=== PATIENT | female | born 1970 | race Asian ===

== ENCOUNTER 2017-03-25 10:53 | Day surgery (SDC) | payer OTHER, BC ==
[~2017-03-25] VITALS: Ht 154.9 cm; Wt 55.0 kg
[~2017-03-25 10:53] MED LIST: AMBR10TA3 PO; CARV6.2512 PO; CETI10CA PO; DEXL60CA PO; DIPH25CA61 PO; DOCO200C3 PO; FAMO-79 PO; FURO-93 PO; IPRA12.9 INH; MULT1TAB77 PO; ONDA4TAB7 PO; POTA10TA31 PO; SILD20TA PO; TADA20TA33 PO
[2017-03-25 12:03] VITALS: BP 111/82
[2017-03-25] MEDS ORDERED: LACTATED RINGERS 1,000 ML IV SCH (12:07)
[2017-03-25] MEDS ORDERED: REMODULIN (12:30)
[2017-03-25] MEDS ORDERED: BUPIVACAINE/PF-EPI 0.5% 1:200K ONE (13:01)
[2017-03-25] MEDS ORDERED: HEPARIN 1,000 UNITS/ML, 10ML ONE (13:01)
[2017-03-25 13:20] LABS: HCG UR OBC PASS
[2017-03-25] MEDS ORDERED: MIDAZOLAM 1 MG/ML, 2ML ONE (13:23)
[2017-03-25] MEDS ORDERED: FENTANYL PF 100 MCG/2ML ONE (13:23)
[2017-03-25] MEDS ORDERED: CEFAZOLIN 1,000 MG ONE (13:24)
[2017-03-25] MEDS ORDERED: LIDOCAINE/PF 1.5%-EPI 1:200K, 30ML ONE (13:27)
[2017-03-25] MEDS ORDERED: LIDOCAINE/PF 1%, 30ML ONE (13:27)
[2017-03-25] MEDS ORDERED: EPINEPHRINE 1 MG/ML, 1ML ONE (13:28)
[2017-03-25] MEDS ORDERED: FENTANYL PF 100 MCG/2ML IV PRN (14:00)
[2017-03-25] MEDS ORDERED: ACETAMINOPHEN 325 MG TABLET PO PRN (14:00)
[2017-03-25] MEDS ORDERED: HYDROmorphone 1 MG/ML, 1ML IV PRN (14:00)
[2017-03-25] MEDS ORDERED: OXYcodone 5 MG/5 ML ORAL.SOL UDC PO PRN (14:00)
[2017-03-25] MEDS ORDERED: METOCLOPRAMIDE 5 MG/ML, 2ML IV PRN (14:00)
[2017-03-25] MEDS ORDERED: ONDANSETRON 2MG/ML, 2ML IVPush PRN (14:00)
[2017-03-25] MEDS ORDERED: LABETALOL 5MG/ML, 20ML IV PRN (14:00)
[2017-03-25] MEDS ORDERED: hydrALAzine 20 MG/ML, 1ML IV PRN (14:00)
== END 2017-03-25 16:50 | disposition home or self-care (01) ==
LOC: OUT 10:53
PROVIDERS: ATTEND Surgery
DX: I27.2 Other secondary pulmonary hypertension (principal); I10 Essential (primary) hypertension; Z91.09 Other allergy status, other than to drugs and biological substances
CPT/HCPCS: 36558; 71010; 76000; 81025; 93308; 93321; 93325; C1788; J0690; J1644; J2250; J3010; J3490; J7120; J0171